=== PATIENT | female | born 1955 | race Caucasian/White ===

== ENCOUNTER → 2016-08-11 | Outpatient (CLI) | payer BC ==
--- NOTE | 2016-08-11 15:53 | MR ---
EXAMINATION TYPE: MR shoulder RT wo con DATE OF EXAM: 08/11/2016 COMPARISON: NONE HISTORY: Rt shoulder Joint pain, Injury TECHNIQUE: Multiplanar, multisequence imaging of the right shoulder is performed without contrast. FINDINGS: Rotator Cuff: There is a complete tear of the distal margin of the infraspinatus and supraspinatus te ndon with retraction to the distal margin of the acromion. Subscapularis is intact. Acromioclavicular Joint: Hypertrophic change of the AC joint is seen. No significant mass effect. Glenohumeral Joint: There is narrowing of the glenohumeral joint in the humerus appears somewhat high riding in position. Inferior glenohumeral limits appears intact. Labrum: Findings are compatible with an anterior superior labral tear. Biceps Tendon: There is increased fluid surrounding the bicipital tendon within the bicipital groove and there appears to be intrasubstance abnormal signal. Split tear in the differential. Additionally within the intracapsular portion of the tendon and within the biceps anchor there is edematous change suggestive of tendinosis or partial tear Bone marrow signal: Large area of abnormal signal in the marrow suggestive of an intraosseous lesion measuring approximately 2 cm. Additional cystic areas along the superior margin of the humeral head l ikely reactive secondary to rotator cuff and possible chronic impingement. IMPRESSION: 1. Complete tear of the distal infraspinatus and supraspinatus tendons at with retraction as discusse d above. 2. Marked abnormal increased signal and thickening of the intracapsular portion of the biceps tendon as well as edematous change within the bicipital groove suggestive of severe tendinosis and partial i ntrasubstance tear. No retraction. 3. Intraosseous lesion involving humerus likely the basis of a bone infarct or chondroid lesion. Finesse elate with dedicated plain film x-ray. #4 anterior superior labral tear.
== END | disposition home or self-care (01) ==
LOC: RADMRIMAIN 14:23
PROVIDERS: ATTEND Nurse Practitioner Adult Health
DX: S46.011A Strain of muscle(s) and tendon(s) of the rotator cuff of right shoulder, initial encounter (principal); M67.813 Other specified disorders of tendon, right shoulder; M62.89 Other specified disorders of muscle

== ENCOUNTER → 2017-08-09 | Outpatient (CLI) | payer BC ==
--- NOTE | 2017-08-10 07:15 | MM ---
Reason for exam: screening (asymptomatic). Last mammogram was performed 2 years and 6 months ago. History: Patient is postmenopausal. Benign US biopsy breast VAD LT of the left breast, July 02, 2014. Benign stereotactic core biopsy of the left breast, 2010. Taking estrogen for 1 year 6 months beginning at age 54. Physical Findings: A clinical breast exam by your physician is recommended on an annual basis and results should be correlated with mammographic findings. MG 3D Screening Mammo W/Cad Bilateral CC and MLO view(s) were taken. Prior study comparison: January 24, 2015, left breast MG 3d diag mammo w/cad LT. July 02, 2014, left breast MG diagnostic mammo LT wo CAD. The breast tissue is heterogeneously dense. This may lower the sensitivity of mammography. Left breast biopsy markers noted. ASSESSMENT: Negative, BI-RAD 1 RECOMMENDATION: Routine screening mammogram of both breasts in 1 year.
== END ==
LOC: RADMAMWWP 07:48
PROVIDERS: ATTEND Family Medicine
DX: Z12.31 Encounter for screening mammogram for malignant neoplasm of breast (principal)
CPT/HCPCS: 77063; 77067

== ENCOUNTER → 2017-08-16 | Outpatient (CLI) | payer BC ==
--- NOTE | 2017-08-16 08:06 | US ---
EXAMINATION TYPE: US abdomen complete DATE OF EXAM: 08/16/2017 COMPARISON: NONE CLINICAL HISTORY: R10.11Right upper quadrant pain,R10.12 Pelvic pain. EXAM MEASUREMENTS: Liver Length: 9.1 cm Gallbladder Wall: 0.2 cm CBD: 0.6 cm Spleen: 9.7 cm Right Kidney: 9.6 x 3.6 x 4.5 cm Left Kidney: 10.3 x 3.3 x 4.2 cm Pancreas: visualized portions wnl Liver: wnl Gallbladder: No stones seen Evidence for sonographic Cox's sign: No CBD: wnl Spleen: wnl Right Kidney: No hydronephrosis or masses seen Left Kidney: upper pole simple appearing cyst measures 1.0 x 1.0 x 1.0 cm Upper IVC: wnl Abd Aorta: wnl The visualized liver is homogenous. The intrahepatic portion of the IVC and visualized abdominal aor ta are within normal limits. There is no evidence of cholelithiasis. Common bile duct is unremarkab le. The visualized portions of the pancreas are homogenous. The spleen is unremarkable. Kidneys ar e symmetric and free of hydronephrosis. No worrisome solid or cystic renal lesions are seen. Simple appearing 1.0 cm cyst upper pole left kidney noted. IMPRESSION: No significant finding is seen to account for patient's symptoms
--- NOTE | 2017-08-16 08:08 | US ---
EXAMINATION TYPE: US transvaginal DATE OF EXAM: 08/16/2017 COMPARISON: US January 24, 2015 CLINICAL HISTORY: R10.11Right upper quadrant pain,R10.12 Pelvic pain. TECHNIQUE: Transvaginal (TV). Date of LMP: post menopausal 10 years EXAM MEASUREMENTS: Uterus: 6.3 x 2.6 x 3.9 cm Endometrial Stripe: 0.3 cm Right Ovary: 1.3 x 0.8 x 0.8 cm Left Ovary: 0.9 x 1.1 x 1.1 cm 1. Uterus: Anteverted heterogeneous echotexture 2. Endometrium: wnl 3. Right Ovary: wnl 4. Left Ovary: wnl 5. Bilateral Adnexa: wnl 6. Posterior cul-de-sac: no free fluid Markedly heterogeneous uterus is redemonstrated. Endometrial stripe is not seen with certainty and almonte spected atrophic on current. No free fluid is seen in pelvic cul-de-sac. Small sized ovaries correlate with patient's postmenopausal age, no worrisome adnexal lesion is seen on images saved. IMPRESSION: No suspicious finding is seen to account for patient's symptoms.
== END | disposition home or self-care (01) ==
LOC: RADUSWWP 06:40
PROVIDERS: ATTEND Family Medicine
DX: R10.2 Pelvic and perineal pain (principal); R10.11 Right upper quadrant pain
CPT/HCPCS: 76700; 76830

== ENCOUNTER → 2017-09-13 | Outpatient (CLI) | payer BC ==
--- NOTE | 2017-09-13 15:30 | NM ---
EXAMINATION TYPE: NM hepatobiliary w EF DATE OF EXAM: 09/13/2017 COMPARISON: Complete US abdomen 08/16/2017. HISTORY: Abdominal pain not further specified per order. TECHNIQUE: After the intravenous administration of 5.1 mCi Tc 99m Mebrofenin hepatobiliary scintigrap hy is performed. Immediate images post injection. FINDINGS: There is satisfactory initial accumulation of tracer by the liver. The gallbladder is visualized wit hin 30 minutes. The small bowel activity is noted within 30 minutes. At one hour 8 ounces of oral E ssure plus is given to mimic CCK and gallbladder ejection fraction is calculated at 74 %, in the norm al range. Therefore there is no scintigraphic evidence of cystic or common bile duct obstruction to suggest acute cholecystitis or gallbladder dyskinesia. IMPRESSION: Exam is within normal limits.
== END | disposition home or self-care (01) ==
LOC: RADNMMAIN 12:54
PROVIDERS: ATTEND Family Medicine
DX: R10.9 Unspecified abdominal pain (principal)
CPT/HCPCS: 78226; A9537

== ENCOUNTER → 2019-01-01 | Outpatient (CLI) | payer BC ==
--- NOTE | 2019-01-02 10:12 | MM ---
Reason for exam: screening (asymptomatic). Last mammogram was performed 1 year and 5 months ago. History: Patient is postmenopausal. Benign US biopsy breast VAD LT of the left breast, July 02, 2014. Benign stereotactic core biopsy of the left breast, 2010. Taking estrogen for 1 year 6 months beginning at age 54. Physical Findings: A clinical breast exam by your physician is recommended on an annual basis and results should be correlated with mammographic findings. MG 3D Screening Mammo W/Cad Bilateral CC and MLO view(s) were taken. Prior study comparison: August 09, 2017, bilateral MG 3d screening mammo w/cad. January 24, 2015, left breast MG 3d diag mammo w/cad LT. There are scattered fibroglandular densities. There are benign appearing dystrophic calcifications bilaterally. Previous mammotome biopsy in the left breast x 3. There is chronic nodularity in the left breast near clip. There is no discrete abnormality. ASSESSMENT: Benign, BI-RAD 2 RECOMMENDATION: Routine screening mammogram of both breasts in 1 year.
== END | disposition home or self-care (01) ==
LOC: RADMAMWWP 15:43
PROVIDERS: ATTEND Family Medicine
DX: Z12.31 Encounter for screening mammogram for malignant neoplasm of breast (principal)
CPT/HCPCS: 77063; 77067

== ENCOUNTER → 2020-01-31 | Outpatient (CLI) | payer BC ==
--- NOTE | 2020-02-01 08:49 | MM ---
Reason for exam: screening (asymptomatic). Last mammogram was performed 1 year and 1 month ago. History: Patient is postmenopausal. Benign US biopsy breast VAD LT of the left breast, July 02, 2014. Benign stereotactic core biopsy of the left breast, 2010. Taking estrogen for 1 year 6 months beginning at age 54. Physical Findings: A clinical breast exam by your physician is recommended on an annual basis and results should be correlated with mammographic findings. MG 3D Screening Mammo W/Cad Bilateral CC and MLO view(s) were taken. Prior study comparison: January 01, 2019, bilateral MG 3d screening mammo w/cad. August 09, 2017, bilateral MG 3d screening mammo w/cad. There are scattered fibroglandular densities. There are benign appearing round dystrophic calcifications bilaterally. Previous mammotome biopsy in the left breast x 4. There is chronic nodularity in the left breast. There is no discrete abnormality. ASSESSMENT: Benign, BI-RAD 2 RECOMMENDATION: Routine screening mammogram of both breasts in 1 year.
== END | disposition home or self-care (01) ==
LOC: RADMAMWWP 08:49
PROVIDERS: ATTEND Family Medicine
DX: Z12.31 Encounter for screening mammogram for malignant neoplasm of breast (principal)
CPT/HCPCS: 77063; 77067

== ENCOUNTER → 2021-03-05 | Outpatient (CLI) | payer BC ==
--- NOTE | 2021-03-09 09:35 | MM ---
Reason for exam: screening (asymptomatic). Last mammogram was performed 1 year and 1 month ago. History: Patient is postmenopausal. Benign US biopsy breast VAD LT of the left breast, July 02, 2014. Benign stereotactic core biopsy of the left breast, 2010. Taking estrogen for 10 years 6 months beginning at age 54. Physical Findings: A clinical breast exam by your physician is recommended on an annual basis and results should be correlated with mammographic findings. MG 3D Screening Mammo W/Cad Bilateral CC and MLO view(s) were taken. Prior study comparison: January 31, 2020, bilateral MG 3d screening mammo w/cad. January 01, 2019, bilateral MG 3d screening mammo w/cad. There are scattered fibroglandular densities. Previous mammotome biopsy in the left breast x 3. There is chronic nodularity in the left breast. No significant changes when compared with prior studies. ASSESSMENT: Benign, BI-RAD 2 RECOMMENDATION: Routine screening mammogram of both breasts in 1 year.
== END | disposition home or self-care (01) ==
LOC: RADMAMWWP 07:36
PROVIDERS: ATTEND Family Medicine
DX: Z12.31 Encounter for screening mammogram for malignant neoplasm of breast (principal); Z78.0 Asymptomatic menopausal state
CPT/HCPCS: 77063; 77067

== ENCOUNTER → 2021-04-29 | Outpatient (CLI) | payer BC ==
--- NOTE | 2021-04-30 10:00 | ECHOF ---
Referral Reason:R07.9 Chest pain MEASUREMENTS -------- HEIGHT: 157.5 cm WEIGHT: 54.9 kg BP: IVSd: 1.1 cm (0.6 - 1.1) LVIDd: 2.4 cm (3.9 - 5.3) LVPWd: 1.5 cm (0.6 - 1.1) IVSs: 1.8 cm LVIDs: 1.5 cm LVPWs: 1.8 cm Ao Diam: 2.7 cm (2.0 - 3.7) AV Cusp: 1.8 cm (1.5 - 2.6) LA Diam: 2.5 cm (2.7 - 3.8) MV EXCURSION: 13.991 mm (> 18.000) MV EF SLOPE: 98 mm/s (70 - 150) EPSS: 0.6 cm MV E Rick: 0.53 m/s MV DecT: 125 ms MV A Rick: 0.69 m/s MV E/A Ratio: 0.78 RAP: 5.00 mmHg RVSP: 12.14 mmHg FINDINGS -------- This was a technically good study. The left ventricular size is normal. Left ventricular wall thickness is normal. Overall left vent ricular systolic function is normal with, an EF between 55 - 60 %. The right ventricle is normal in size. The left atrial size is normal. The right atrial size is normal. The aortic valve is trileaflet and appears structurally normal. The mitral valve is normal. There is trace mitral regurgitation. The tricuspid valve appears structurally normal. Trace tricuspid regurgitation present. Right tawanda tricular systolic pressure is normal at < 35 mmHg. There is no pulmonic regurgitation present. The aortic root size is normal. Normal inferior vena cava with normal inspiratory collapse consistent with estimated right atrial pre ssure of 5 mmHg. There is no pericardial effusion. CONCLUSIONS -------- 1. The left ventricular size is normal. 2. Left ventricular wall thickness is normal. 3. Overall left ventricular systolic function is normal with, an EF between 55 - 60 %. 4. There is trace mitral regurgitation. 5. Trace tricuspid regurgitation present. 6. There is no pericardial effusion. [employer]: Zo Erazo RDCS
== END | disposition home or self-care (01) ==
LOC: RADECHMAIN 13:30
PROVIDERS: ATTEND Family Medicine
DX: I08.1 Rheumatic disorders of both mitral and tricuspid valves (principal)
CPT/HCPCS: 93306

== ENCOUNTER → 2021-05-19 | Outpatient (CLI) | payer BC ==
--- NOTE | 2021-05-19 15:48 | CTL ---
EXAMINATION TYPE: CT Low Dose Lung DATE OF EXAM ORDERED: 05/19/2021 HISTORY: Tobacco use. Lung cancer screening CT DLP: [address] CTDI: 1.87 mGy Automated exposure control for dose reduction was used. SCREENING VISIT: Baseline COMPARISON: None available TECHNIQUE: Low dose computed tomography scan was performed through the chest at 1 mm thick sections a nd reconstructed images in multiple planes at 1 mm and [address] DIAGNOSTIC QUALITY: Satisfactory FINDINGS: LUNG NODULES: Left lung apex solid [address] image 20. Few scattered calcified granulomas in the right lung measuring up to 3 mm. LUNGS: COPD: Severity: Mild Fibrosis: Severity: Thick fibrotic changes with traction bronchiectasis are seen in the lung apex nadine aterally. Lymph nodes: No pathologically enlarged Other findings: Paraseptal emphysema is seen in the lung apex bilaterally. RIGHT PLEURAL SPACE: Effusion: None Calcification: None Thickening: None Pneumothorax: None LEFT PLEURAL SPACE: Effusion: None Calcification: None Thickening: None Pneumothorax: None HEART: Heart Size: Normal Coronary Calcification: Minimal Pericardial Effusion: None OTHER FINDINGS: Upper abdomen: None Bony thorax: Degenerative changes of the lower thoracic spine. T8 vertebral body hemangioma. Supraclavicular region: None Other: None IMPRESSION: COPD changes with left upper lung apex 3 mm nodule. Other incidental findings as describe d above. CT LUNG RAD AND CT CHEST RECOMMENDATION: Lung-Rad 2 Benign Appearance or Behavior: Continue annual sc reening with LDCT in 12 months. S Modifier (other clinically significant findings): None
== END | disposition home or self-care (01) ==
LOC: RADCTMAIN 13:38
PROVIDERS: ATTEND Family Medicine
DX: Z12.2 Encounter for screening for malignant neoplasm of respiratory organs (principal); J44.9 Chronic obstructive pulmonary disease, unspecified; R91.1 Solitary pulmonary nodule; Z87.891 Personal history of nicotine dependence
CPT/HCPCS: 71271

== ENCOUNTER → 2022-03-10 | Outpatient (CLI) | payer BC ==
--- NOTE | 2022-03-10 10:25 | MM ---
Reason for Exam: Screening (asymptomatic). Last screening mammogram was performed 12 month(s) ago. Patient History: Menarche at age 18. First Full-Term at age 22. Postmenopausal. Estrogen, starting at age 54 for 10 years, 6 months. 2010, Benign Stereotactic Core Biopsy on the left side. 07/02/2014, Benign Core Biopsy on the left side. Risk Values: Lu 5 year model risk: 2.0%. NCI Lifetime model risk: 7.9%. Prior Study Comparison: 01/01/2019 Bilateral Screening Mammogram, [facility]. 01/31/2020 Bilateral Screening Mammogram, [facility]. 03/05/2021 Bilateral Screening Mammogram, [facility]. Tissue Density: There are scattered fibroglandular densities. Findings: Analyzed By CAD. Findings are symmetrical and stable. Benign coarse calcification is present. Prior biopsy markers are on the left No suspicious groups of microcalcifications, spiculated or lobular masses, architectural distortion or other secondary signs of malignancy are mammographically apparent. Overall Assessment: Benign, BI-RAD 2 Management: Screening Mammogram of both breasts in 1 year. A negative mammogram report should not preclude additional follow up of suspicious palpable abnormalities. Patient should continue monthly self breast exam. A clinical breast exam by your physician is recommended on an annual basis and results should be correlated with mammographic findings. Electronically signed and approved by: Ruben Wallis D.O. Radiologis
== END | disposition home or self-care (01) ==
LOC: RADMAMWWP 06:56
PROVIDERS: ATTEND Family Medicine
DX: Z12.31 Encounter for screening mammogram for malignant neoplasm of breast (principal); Z78.0 Asymptomatic menopausal state; Z98.890 Other specified postprocedural states
CPT/HCPCS: 77063; 77067

== ENCOUNTER → 2022-08-04 | Outpatient (CLI) | payer MEDICARE ==
--- NOTE | 2022-08-04 08:26 | CTL ---
EXAMINATION TYPE: CT Low Dose Lung DATE OF EXAM ORDERED: 08/04/2022 HISTORY: Long-term tobacco use. Lung cancer screening CT DLP: 54.[address] CTDI: 1.50 mGy Automated exposure control for dose reduction was used. SCREENING VISIT: First after baseline COMPARISON: Prior study May 19, 2021 TECHNIQUE: Low dose computed tomography scan was performed through the chest at 1 mm thick sections a nd reconstructed images in multiple planes at 1 mm and [address] DIAGNOSTIC QUALITY: Satisfactory FINDINGS: LUNG NODULES: Present, detailed below: A few scattered tiny calcified and noncalcified nodules redemonstrated. Stable 2 to 3 mm anterior left upper lobe nodule axial image 40. Stable 2 to 3 mm peripheral right lo wer lobe nodule axial image 224. Stable 2 mm right basilar nodule axial image 230. Stable 2 to 3 mm r ight middle lobe nodule axial image 158. No new or enlarging greater than 5 mm noncalcified pulmonary nodules. LUNGS: COPD: Severity: Mild Fibrosis: Severity: Moderate biapical redemonstrated. Lymph nodes: None Other findings: None RIGHT PLEURAL SPACE: Effusion: None Calcification: None Thickening: None Pneumothorax: None LEFT PLEURAL SPACE: Effusion: None Calcification: None Thickening: None Pneumothorax: None HEART: Heart Size: Normal Coronary Calcification: [id number] Pericardial Effusion: None OTHER FINDINGS: Upper abdomen: None Bony thorax: Scoliotic curvature redemonstrated Supraclavicular region: None Other: None IMPRESSION: Persistent Scattered tiny micronodules. No new or enlarging greater than 5 mm noncalcifie d pulmonary nodules. CT LUNG RAD AND CT CHEST RECOMMENDATION: Lung-Rad 2 Benign Appearance or Behavior: Continue annual sc reening with LDCT in 12 months. S Modifier (other clinically significant findings): None
== END | disposition home or self-care (01) ==
LOC: RADCTMAIN 06:10
PROVIDERS: ATTEND Family Medicine
DX: Z12.2 Encounter for screening for malignant neoplasm of respiratory organs (principal); R91.8 Other nonspecific abnormal finding of lung field; J44.9 Chronic obstructive pulmonary disease, unspecified; Z87.891 Personal history of nicotine dependence
CPT/HCPCS: 71271

== ENCOUNTER → 2023-03-16 | Outpatient (CLI) | payer MEDICARE ==
--- NOTE | 2023-03-17 20:19 | MM ---
Reason for Exam: Screening (asymptomatic). Last screening mammogram was performed 12 month(s) ago. Patient History: Menarche at age 18. First Full-Term at age 22. Postmenopausal. Estrogen, starting at age 54 for 10 years, 6 months. 2010, Benign Stereotactic Core Biopsy on the left side. 07/02/2014, Benign Core Biopsy on the left side. Risk Values: Lu 5 year model risk: 2.0%. NCI Lifetime model risk: 7.6%. Prior Study Comparison: 01/31/2020 Bilateral Screening Mammogram, [facility]. 03/05/2021 Bilateral Screening Mammogram, [facility]. 03/10/2022 Bilateral MG 3D screening mammo w/cad, [facility]. Tissue Density: There are scattered fibroglandular densities. Findings: Analyzed By CAD. Chronic nodularity in the left breast with a microclip related to prior biopsy. There is no suspicious group of microcalcifications or new suspicious mass in either breast. Overall Assessment: Benign, BI-RAD 2 Management: Screening Mammogram of both breasts in 1 year. . Patient should continue monthly self-breast exams. A clinical breast exam by your physician is recommended on an annual basis. This exam should not preclude additional follow-up of suspicious palpable abnormalities. Note on Lu scores and lifetime risk: 1. A Lu score greater than 3% is considered moderate risk. If this is the case, consider specialist referral to assess eligibility for a risk reducing agent. 2. If overall lifetime risk for the development of breast cancer is 20% or higher, the patient may qualify for future screening with alternating mammogram and breast MRI. Electronically signed and approved by: Gopi Thompson M.D. Radiologist
== END | disposition home or self-care (01) ==
LOC: RADMAMWWP 09:52
PROVIDERS: ATTEND Family Medicine
DX: Z12.31 Encounter for screening mammogram for malignant neoplasm of breast (principal); Z78.0 Asymptomatic menopausal state
CPT/HCPCS: 77063; 77067

== ENCOUNTER → 2023-08-18 | Outpatient (CLI) | payer MEDICARE ==
--- NOTE | 2023-08-18 11:15 | CTL ---
EXAMINATION TYPE: CT Low Dose Lung DATE OF EXAM ORDERED: 08/18/2023 History: Lung cancer screening CT DLP: 64.[address] CTDI: 1.8 mGy Automated exposure control for dose reduction was used. Comparison: 08/04/2022 TECHNIQUE: Low dose computed tomography scan was performed through the chest at 1 mm thick sections a nd reconstructed images in multiple planes at 1 mm and [address] DIAGNOSTIC QUALITY: Satisfactory Findings: There are moderate emphysematous changes. There is persistent mild pleural-parenchymal scarring in the lung apices and multiple subpleural bleb s. There are stable scattered calcified granulomas. There is no new or suspicious lung mass or nodule. There is no airspace consolidation or abnormal interstitial density. There is no pleural effusion or pneumothorax. The great vessels chest are normal and no mediastinal, hilar or axillary adenopathy. Limited scanning through the upper abdomen reveals no abnormality. No focal osseous lesions are seen. IMPRESSION: 1. Lung RADS category 1 negative. Continue routine screening yearly intervals. 2. Moderate emphysematous changes. 3. No acute cardiopulmonary disease.
== END | disposition home or self-care (01) ==
LOC: RADCTMAIN 07:40
PROVIDERS: ATTEND Family Medicine
DX: Z12.2 Encounter for screening for malignant neoplasm of respiratory organs (principal); Z87.891 Personal history of nicotine dependence
CPT/HCPCS: 71271

== ENCOUNTER → 2024-05-03 | Outpatient (CLI) | payer MEDICARE ==
--- NOTE | 2024-05-03 15:35 | MM ---
Reason for Exam: Screening (asymptomatic). Last mammogram was performed 1 year(s) and 2 month(s) ago. Patient History: Menarche at age 18. First Full-Term at age 22. Postmenopausal. Estrogen, starting at age 54 for 10 years, 6 months. 2010, Benign Stereotactic Core Biopsy on the left side. 07/02/2014, Benign Core Biopsy on the left side. Risk Values: Lu 5 year model risk: 2.1%. NCI Lifetime model risk: 7.1%. Prior Study Comparison: 03/05/2021 Bilateral Screening Mammogram, [facility]. 03/10/2022 Bilateral MG 3D screening mammo w/cad, [facility]. 03/16/2023 Bilateral MG 3D screening mammo w/cad, [facility]. Tissue Density: There are scattered areas of fibroglandular density. Findings: Analyzed By CAD. Microplates left breast from prior biopsy. Chronic nodularity anterior left breast appears smaller. There is no suspicious group of microcalcifications or new suspicious mass in either breast. Overall Assessment: Benign, BI-RAD 2 Management: Screening Mammogram of both breasts in 1 year. . Patient should continue monthly self-breast exams. A clinical breast exam by your physician is recommended on an annual basis. This exam should not preclude additional follow-up of suspicious palpable abnormalities. Note on Lu scores and lifetime risk: 1. A Lu score greater than 3% is considered moderate risk. If this is the case, consider specialist referral to assess eligibility for a risk reducing agent. 2. If overall lifetime risk for the development of breast cancer is 20% or higher, the patient may qualify for future screening with alternating mammogram and breast MRI. [facility], , 05/03/2024 3:33 PM. Electronically signed and approved by: Gopi Thompson M.D. Radiologist
== END | disposition home or self-care (01) ==
LOC: RADMAMWWP 12:46
PROVIDERS: ATTEND Family Medicine
DX: Z12.31 Encounter for screening mammogram for malignant neoplasm of breast (principal); R92.323 Mammographic fibroglandular density, bilateral breasts; Z78.0 Asymptomatic menopausal state
CPT/HCPCS: 77063; 77067

== ENCOUNTER 2024-06-05 08:37 | Day surgery (SDC) | payer MEDICARE ==
[2024-06-04 12:16] VITALS: BMI 22.1
[2024-06-05] MEDS: IV FLUID CONTINUATION 1,000 ML IV ONE (08:54)
[2024-06-05] MEDS: LACTATED RINGERS 1,000 ML IV SCH (09:11)
[2024-06-05 09:12] VITALS: RESP 16; TEMP 98
[2024-06-05] MEDS ORDERED: LIDOCAINE 2% (PF) 20 MG/ML 5 ML VIAL ONE (09:52)
[2024-06-05] MEDS ORDERED: PROPOFOL 10 MG/ML 20 ML VIAL IV ONE (09:52)
--- NOTE | 2024-06-05 10:10 | P.PCN ---
Date of Procedure: 06/05/24 Procedure(s) Performed: BRIEF HISTORY: Patient is a 69-year-old pleasant white female scheduled for an elective colonoscopy as a part of screening for colon cancer. PROCEDURE PERFORMED: Colonoscopy. PREOPERATIVE DIAGNOSIS: Screening for colon cancer. IV sedation per Anesthesia. PROCEDURE: After informed consent was obtained, the patient, was brought into the endoscopy unit. IV sedation was administered by Anesthesia under continuous monitoring. Digital rectal examination was normal. Initially the Olympus CF-160 flexible video colonoscope was then inserted in the rectum, gradually advanced into the cecum without any difficulty. Careful examination was performed as the scope was gradually being withdrawn. Ileocecal valve and the appendiceal orifice were visualized and appeared normal. Prep was excellent. Mucosa of the cecum, ascending colon, transverse colon, descending colon, sigmoid colon, and rectum appeared normal. Scattered diverticulosis. Retroflexion was performed in the rectum and no lesions were seen. The patient tolerated the procedure well. IMPRESSION: Normal-appearing colon from rectum to cecum with no evidence of colonic neoplasia. Scattered diverticulosis. RECOMMENDATIONS: Findings of this examination were discussed with the patient as well as family. She was advised to have repeat screening colonoscopy in 10 years.
[2024-06-05 10:27] VITALS: BP 153/93; PULSE 77
== END 2024-06-05 10:41 | disposition home or self-care (01) ==
LOC: ORWHC2ENDO 08:37
PROVIDERS: ATTEND Internal Medicine Gastroenterology
DX: Z12.11 Encounter for screening for malignant neoplasm of colon (principal); K57.30 Diverticulosis of large intestine without perforation or abscess without bleeding
CPT/HCPCS: J2704; J2003; G0121